=== PATIENT | female | born 1995 | race Two or more races ===

== ENCOUNTER 2022-09-10 17:27 | Emergency (ER) | payer OTHER ==
[~2022-09-10] VITALS: Ht 154.9 cm; Wt 83.9 kg
[2022-09-10 17:45] VITALS: BP 132/82
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
--- NOTE | 2022-09-10 19:39 | NUR ---
Patient discharged to home in stable condition. Written and verbal after care instructions given. Patient verbalizes understanding of instruction.
== END 2022-09-10 19:40 | disposition home or self-care (01) ==
LOC: ER 17:32
DX: S13.4XXA Sprain of ligaments of cervical spine, initial encounter (principal); V49.9XXA Car occupant (driver) (passenger) injured in unspecified traffic accident, initial encounter; Y93.89 Activity, other specified; Y92.89 Other specified places as the place of occurrence of the external cause; Y99.8 Other external cause status
CPT/HCPCS: 72125-TC